=== PATIENT | female | born 1985 | race Caucasian/White ===

== ENCOUNTER → 2018-01-30 | Day surgery (SDC) | payer OTHER ==
[~2018-01-30] MED LIST: PROTONIX40 MG PO; ZANTAC300 MG PO
== END | disposition home or self-care (01) ==
LOC: ADM 01-24 08:30 → CIR.AMB 08:21 → AMB-ENDOS 08:30 → CIR.AMB 08:30
DX: K64.8 Other hemorrhoids (principal); K64.4 Residual hemorrhoidal skin tags